=== PATIENT | male | born 1965 | race Caucasian/White ===

== ENCOUNTER 2019-07-01 09:12 | Emergency (ER) | payer SELFPAY ==
[~2019-07-01] VITALS: Ht 175.3 cm; Wt 90.5 kg
[2019-07-01 09:15] VITALS: Ht 175.3 cm; Wt 90.5 kg
[2019-07-01] MEDS ORDERED: VITAMIN D5000 UNIT PO (09:16)
[2019-07-01] MEDS ORDERED: ANDROGEL5 GM TP (09:16)
[2019-07-01 12:16] VITALS: BP 148/91
== END 2019-07-01 12:13 | disposition short-term general hospital (02) ==
LOC: D.ER 09:12
DX: K22.2 Esophageal obstruction (principal)